=== PATIENT | male | born 1945 | race Caucasian/White ===

== ENCOUNTER 2016-11-10 08:00 | Inpatient (IN) | payer OTHER ==
[2016-11-10] MEDS ORDERED: methylPREDNISolone SOD SUCC 125 MG/2 ML VIAL IVP ONE (08:13)
[2016-11-10] MEDS: BUDESONIDE 0.5MG/2ML AMPUL.NEB NEB SCH ×2 (08:20→21:21)
[2016-11-10] MEDS ORDERED: 0.9 % SODIUM CHLORIDE 1,000 ML IV SCH (08:30)
[2016-11-10 08:52] LABS: MEAN CORPUSCULAR HEMOGLOBIN 29.7 pg (28.0-34.0)
[2016-11-10 09:00] LABS: BASOPHILS % 1 % (0-2); MONOCYTES % 2 % (0-11); SEGMENTED NEUTROPHILS % 80 % (39-79)
[2016-11-10] MEDS ORDERED: IPRATROPIUM/ALBUTEROL SULFATE 3 ML AMPUL.NEB NEB ONE ×2 (09:06→09:08)
[2016-11-10 09:30] LABS: eGFR (African) > 60; eGFR (Non-African) > 60
[2016-11-10] MEDS ORDERED: LORazepam 2 MG/ML VIAL IVP ONE (10:06)
[2016-11-10] MEDS ORDERED: cefTRIAXone SODIUM ADVANTAGE 1 GM in NORMAL SALINE ADD-VANTAGE 50 ML IV ONE (11:11)
[2016-11-10] MEDS ORDERED: cefTRIAXone SODIUM 1 GM VIAL ONE (11:24)
[2016-11-10] MEDS ORDERED: 0.9 % SODIUM CHLORIDE 100 ML IV ONE (11:25)
--- NOTE | 2016-11-10 11:37 | ED Physician Documentation ---
Dyspnea - HISTORIAN Historian: patient - HPI Stated Complaint: shortness of breath Chief Complaint: Dyspnea Additional Information: Pt. states has been soa this am. Coughing up some yellow phlegm for last 3 days. Onset: hours (1) Duration: continues in ED Initiating Event: upper respiratory illness (see above) Severity: moderate Exacerbated By: exertion Associated Symptoms: fever, productive cough Further Comments: no - ROS CONST: no problems EYES/ENT: none GI/: none NEURO/PSYCH: denies: headache MS/SKIN/LYMPH: none - PAST HX Lung Disease: COPD Cardiac Disease: none PE Risk Factors: none Surgeries/Procedures: none Other History: other (copd) Immunizations: referred to PCP Allergies/Adverse Reactions: Allergies Allergy/AdvReac Type Severity Reaction Status Date / Time No Known Allergies Allergy Verified 11/10/16 08:32 Home Medications: Ambulatory Orders Medication Instructions Recorded Unobtainable [Unobtainable] 11/10/16 - SOCIAL HX Smoking History: cigarettes, greater than 1 pack/day Alcohol Use: heavy (noone recently) Drug Use: none - FAMILY HX Family History: no significant history - VITAL SIGNS Vital Signs: Vital Signs Temp Pulse Resp BP Pulse Ox 99.8 F H 130 H 28 H 137/78 81 L 11/10/16 08:00 11/10/16 08:00 11/10/16 08:00 11/10/16 08:00 11/10/16 08:00 - REVIEWED ASSESSMENTS Nursing Assessment Reviewed: Yes Vitals Reviewed: Yes Progress - Results/Orders Results/Orders: cbc, cmp, etoh, abg ordered - Progress Progress: pt. given pulmicort 0.5 mg, duoneb, solumedrol 125 mg ivp and 1 liter ns in er, placed on 4 liters O2 id Critical Care Note - Critical Care Note Total Time (mins): 0 ED Results Lab/Radiology - Lab Results Lab Results: Lab Results 11/10/16 11/10/16 08:40 08:40 WBC 16.60 K/ul H K/ul (4.00-12.00) RBC 4.38 M/ul M/ul (3.90-5.20) Hgb 13.0 g/dL g/dL (12.0-18.0) Hct 41.3 % % (37.0-53.0) MCV 94.3 fl fl (80.0-100.0) MCH 29.7 pg pg (28.0-34.0) MCHC 31.5 g/dL g/dL (30.0-36.0) RDW 14.5 % H % (11.3-14.3) Plt Count 184 K/mm3 K/mm3 (130-400) Seg Neutrophils % 80 % H % (39-79) Band Neutrophils % 7 % % (0-12) Lymphocytes % 10 % L % (16-50) Monocytes % 2 % % (0-11) Basophils % 1 % % (0-2) Plt Morphology Comment Normal (NORMAL) RBC Morph Comment Normal (NORMAL) Sodium 146 mmol/L H mmol/L (136-145) Potassium 4.2 mmol/L mmol/L (3.5-5.0) Chloride 108 mmol/L mmol/L (98-110) Carbon Dioxide 32 mmol/L mmol/L (20-32) BUN Pending Creatinine 0.8 mg/dL mg/dL (0.4-1.5) Estimated Creat Clear 283 Est GFR ( Amer) > 60 (60 - ) Est GFR (Non-Af Amer) > 60 (60 - ) Glucose 96 mg/dL mg/dL (70-99) Calcium 9.3 mg/dL mg/dL (8.5-10.5) Total Bilirubin 0.6 mg/dL mg/dL (0.2-1.2) AST 14 U/L U/L (0-41) ALT 15 U/L U/L (0-45) Alkaline Phosphatase 72 U/L U/L (46-116) Total Protein 7.0 g/dL g/dL (6.0-8.5) Albumin 4.3 g/dL g/dL (3.0-5.5) Ethyl Alcohol < 10.0 MG/DL MG/DL (<10.0) - Radiology Radiology Impressions: cxr shows copd with bilateral lower lobe infiltrates - Orders Orders: ED Orders Category Date Time Status CHEST 1 VIEW [RAD] Routine Exams 11/10/16 Ordered ARTERIAL BLOOD GAS Stat Lab 11/10/16 Uncollected BLOOD CULTURE Routine Lab 11/10/16 10:00 Received CBC/PLATELET/DIFF Routine Lab 11/10/16 08:40 Completed CMP Routine Lab 11/10/16 08:40 Results ETHANOL MEDICAL USE ONLY Routine Lab 11/10/16 08:40 Results URINALYSIS Routine Lab 11/10/16 08:16 Ordered 0.9 % Sodium Chloride [Normal Saline] 1,000 ml Med 11/10/16 08:30 Ordered IV .Q1H Budesonide [Pulmicort] Med 11/10/16 09:00 Ordered 0.5 mg NEB BID Ipratropium/Albuterol Sulfate [Duoneb] Med 11/10/16 09:06 Discontinued 3 ml NEB .STK-MED ONE Ipratropium/Albuterol Sulfate [Duoneb] Med 11/10/16 09:08 Discontinued 3 ml NEB NOW ONE LORazepam [Ativan] Med 11/10/16 10:06 Stop Req 1 mg IVP NOW ONE cefTRIAXone SODIUM ADVANTAGE [Rocephin Advantage] 1 gm Med 11/10/16 11:11 Ordered Normal Saline Add-[place] [Sodium Chloride] 50 ml IV NOW methylPREDNISolone SOD SUCC [Solu-MEDROL] Med 11/10/16 08:13 Discontinued 125 mg IVP NOW ONE Oxygen Daily Oxygen 11/10/16 08:30 Ordered EKG WITH COMPARISON Routine Ther 11/10/16 Ordered Dyspnea Physical Exam - EXAM General Appearance: alert, moderate distress EENT: eye inspection normal, ENT inspection normal, pharynx normal, no signs of dehydration, FRENCH, no nystagmus, TM's nml Neck: nml inspection Respiratory: no pain on inspiration, respiratory distress, wheezes, rales, other (tachypnea) CVS: reg. rate & rhythm, no murmur, no gallop, no friction rub, pulses full, pulses equal Abdomen: non-tender, no organomegaly, no distention, no ascites Skin: color nml, no rash Extremities: non-tender, normal range of motion, no evidence of injury, no edema Neuro/Psych: oriented x3, CN's nml as tested, motor nml, sensation nml, mood/ affect nml Discharge Clincal Impression: Pneumonia Qualifiers: Pneumonia type: due to unspecified organism Laterality: bilateral Lung location : lower lobe of lung Qualified Code(s): J18.9 - Pneumonia, unspecified organism Home Medications: Ambulatory Orders Unobtainable [Unobtainable] 11/10/16 Comments: Case discussed with Dr. Garces, accepts case Condition: Stable Disposition: 09 ADMITTED INPATIENT Decision to Admit: [id number] Date of Decison to Admit: 11/10/16 Decision Time: 11:45
--- NOTE | 2016-11-10 12:52 | History and Physical Report ---
History of Present Illnes - History of Present Illness Reason for Visit: dyspnea History of Present Illness: 71-year-old white male with a history of COPD. Over the last 3 days prior to admission patient has had increasing shortness of breath dyspnea associated with a productive cough up some green to yellow phlegm. Patient denies any hemoptysis. Patient states that at baseline, breathing has become worse. Patient has been increasing the use of his inhalers without any improvement. Patient had some chills but no fever noted. Patient was subsequently seen in the ED. In the ED patient's SaO2 was approximately 82% on room air. Patient is usually not on home O2. Patient was given several hyperpigmented nebulization treatment and was started on 4 L per nasal cannula. Patient showed some improvement but was not able to maintain his oxygen level without supplemental oxygen. Patient was found to have a leukocytosis and bilateral lower lobe pneumonias. Patient was subsequently admitted to the hospital for further care and evaluation. - Past Medical History Pulmonary: COPD - Past Surgical History Past Surgical History: Other (right foot surgery) - Past Family History Mother Family History: Father Family History: - Past Social History Smoke: 2 packs per day Alcohol: Heavy (intermittent, drinking a 1/5th of vodka or wiskey daily at times. Last use was yesterday. ) Drugs: None Lives: Alone (homeless at times) - Health Maintenance Health Maintenance: Influenza Vaccine. denies: Cholesterol, Pneumococcal Vaccine Pneumonia Vaccine: No (not sure) Resuscitation Status: DNR - Unable to Obtain History Unable to Obtain: No Review of Systems - Review of Systems Constitutional: Fever, Chills. negative: Sweats, Weakness Eyes: negative: pain, vision change, eyelid inflammation ENT: negative: Ear Pain, Ear Discharge, Nose Pain, Nose Discharge, Nose Congestion, Mouth Pain, Mouth Swelling, Throat Pain, Throat Swelling Respiratory: Cough, Shortness of Breath, SOB with Excertion, Sputum (green), Wheezing. negative: Hemoptysis, Pleuritic Pain Cardiovascular: negative: Chest Pain, Palpitations, Orthopnea, Paroxysmal Noc. Dyspnea Gastrointestinal: negative: Nausea, Vomiting, Abdominal Pain, Diarrhea, Constipation, Melena, Hematochezia Genitourinary: negative: Dysuria, Frequency, Incontinence, Retention Musculoskeletal: Back Pain. negative: Neck Pain, Shoulder Pain Skin: negative: Rash, Lesions Neurological: negative: Weakness, Numbness, Incoordination, Change in Speech, Confusion, Seizures - Medications/Allergies Allergies/Adverse Reactions: Allergies Allergy/AdvReac Type Severity Reaction Status Date / Time No Known Allergies Allergy Verified 11/10/16 08:32 Current Inpatient Medications: Current Inpatient Medications Budesonide (Pulmicort) 0.5 mg NEB BID [facility] Last Admin: 11/10/16 08:20 Dose: 0.5 mg Sodium Chloride (Normal Saline) 1,000 mls @ 1,000 mls/hr IV .Q1H [facility] Exam - Exam General: Alert, Oriented to Person, Oriented to Place, Oriented to Time, Cooperative, Moderate distress HEENT: Atraumatic, PERRLA, EOMI, Mouth Mucous membr. moist/[place], Dentition Normal (infair repair), Hearing Grossly Normal. No: Nose Mucous membr. moist/ [place], Pharyngeal Erythema Neck: Normal Range of Motion Carotids: WNL Thyroid: WNL Lungs: Speaks full Sentences, Respiratory Distress (mild), Wheezes, Rhonchi ( few scattered bilaterally). No: Rales, Prolonged Expiration, Accessory Muscle Use Cardiovascular: Regular rate, Normal S1, Normal S2, No murmurs. No: Gallops, Rubs Abdomen: Normal bowel sounds, Soft, No tenderness, No hepatospenomegaly, No masses. No: Distended Integumentary: Normal, [place], Warm, Dry Extremities: No clubbing, No cyanosis, No edema, Normal pulses, No tenderness/ swelling Neurological: Normal gait, Normal speech, Strength Equal Bilat, Normal tone, Sensation intact, Cranial nerves 3-12 NL, Reflexes 2+, Other (some tremors/ shakes, possibly related to EtOH withdrawals) Psych/Mental Status: Mental status NL, Mood NL, Appropriate Affect, Intact Judgment Assessment/Plan - Assessment/Plan (1) Alcohol abuse Status: Acute Assessment: Will start on thiamine, watch for alcohol withdrawal symptoms (2) COPD (chronic obstructive pulmonary disease) Status: Acute Qualifiers: COPD type: COPD with acute exacerbation Qualified Code(s): J44.1 - Chronic obstructive pulmonary disease with (acute) exacerbation Comment: HFN with DUO neb treatments, steroids (3) Pneumonia Status: Acute Qualifiers: Pneumonia type: due to unspecified organism Laterality: bilateral Lung location: lower lobe of lung Qualified Code(s): J18.9 - Pneumonia, unspecified organism Assessment: Patient has blood cultures drawn, will start with Rocephin and Azithromycin. VTE Assessment - RISK FACTOR SCORE VTE RISK FACTOR SCORES: AGE OVER 60 YEARS, ACUTE INFECTION OTHER THEN SEPSIS - RISK VTE MODERATE RISK: SCORE OF 2 (RISK PROXIMAL DVT 2-4%) PROPHYAXIS NEEDED
[2016-11-10] MEDS ORDERED: ACETAMINOPHEN 325 MG TABLET PO PRN (12:58)
[2016-11-10] MEDS ORDERED: ENOXAPARIN SODIUM 30 MG/0.3 ML DISP.SYRIN SQ SCH (13:00)
[2016-11-10] MEDS: cefTRIAXone SODIUM 1 GM in 0.9 % SODIUM CHLORIDE 50 ML IV SCH (13:28)
[2016-11-10 13:46] LABS: APPEARANCE,URINE Slightly Cloudy (CLEAR); COLOR,URINE Yellow (YELLOW); OCCULT BLOOD,URINE Trace-lysed (NEGATIVE); UROBILINOGEN URINE 0.2 Eu (0.2-1.0)
[2016-11-10] MEDS: IPRATROPIUM/ALBUTEROL SULFATE 3 ML AMPUL.NEB NEB SCH ×3 (13:55→21:20)
[2016-11-10] MEDS ORDERED: 0.9 % SODIUM CHLORIDE 250 ML IV ONE (14:09)
[2016-11-10] MEDS ORDERED: SALINE FLUSH 10 ML DISP.SYRIN IVF ONE ×3 (14:09→23:50)
[2016-11-10] MEDS ORDERED: AZITHROMYCIN 500 MG VIAL IV ONE (14:09)
[2016-11-10] MEDS: AZITHROMYCIN 500 MG in 0.9 % SODIUM CHLORIDE 250 ML IV SCH (14:31)
[2016-11-10] MEDS ORDERED: ENOXAPARIN SODIUM 30 MG/0.3 ML DISP.SYRIN SQ ONE (14:39)
--- NOTE | 2016-11-10 16:05 | Diagnostic Imaging Report ---
ZACH CALLAWAY [facility] [id number] [facility].[address] [address] Report Submission Date: Nov 10, 2016 8:49:39 AM SALES LEDGER ADMINISTRATOR Patient Study Name: JONATHAN ESCOBAR Date: Nov 10, 2016 8:22:30 AM SALES LEDGER ADMINISTRATOR Modality Type: CR Gender: M Description: CHEST : 49 Institution: [facility] Physician: ZACH CALLAWAY Chest -one view CLINICAL HISTORY: Shortness of breath. COPD. FINDINGS: Examination of the chest in single portable AP view 11/10/2016 0822 hr with no prior film for comparison demonstrates bibasilar infiltrates or atelectasis partially obscuring the hemidiaphragms. Cardiac silhouette is prominent and the aorta is atherosclerotic. Monitor leads superimpose the chest. IMPRESSION: Bibasilar infiltrates or atelectasis. Aortic atherosclerosis. Electronically signed on Nov 10, 2016 8:49:39 AM SALES LEDGER ADMINISTRATOR by: Tomás MORAN
[2016-11-10] MEDS: SODIUM CHLORIDE 0.45 % 1,000 ML IV SCH (16:18)
[2016-11-10 16:28] VITALS: BMI 27.7
[2016-11-10] MEDS ORDERED: NICOTINE 14mg PATCH.TD24 TD ONE (19:01)
[2016-11-10] MEDS: ACETAMINOPHEN 500 MG TABLET PO PRN (19:03)
[2016-11-10] MEDS: LORazepam 0.5 MG TABLET PO PRN (19:03)
[2016-11-10] MEDS: NICOTINE 14mg PATCH.TD24 TD SCH (19:07)
[2016-11-10] MEDS: THIAMINE HCL 100 MG TABLET PO SCH (21:05)
[2016-11-10] MEDS: methylPREDNISolone SOD SUCC 40 MG/ML VIAL IVP SCH (21:20)
[2016-11-11] MEDS: IPRATROPIUM/ALBUTEROL SULFATE 3 ML AMPUL.NEB NEB SCH ×6 (01:20→20:40)
[2016-11-11] MEDS: SODIUM CHLORIDE 0.45 % 1,000 ML IV SCH ×3 (01:30→23:09)
[2016-11-11] MEDS: LORazepam 0.5 MG TABLET PO PRN ×3 (04:17→20:24)
[2016-11-11 06:04] LABS: ABG BASE EXCESS 5.6 (-2 - +2); ABG PCO2 48 mmhg (35-45); ABG PH 7.42 (7.35-7.45); ABG PO2 54 mmhg (80-100)
[2016-11-11 06:05] LABS: ABG OXYGEN SATURATION 88 % (93-100)
[2016-11-11] MEDS ORDERED: FUROSEMIDE 20 MG TABLET PO ONE (06:48)
[2016-11-11 06:57] LABS: eGFR (African) > 60; eGFR (Non-African) > 60
[2016-11-11 07:56] LABS: MEAN CORPUSCULAR HEMOGLOBIN 28.5 pg (28.0-34.0)
[2016-11-11 08:14] LABS: MONOCYTES % 3 % (0-11); SEGMENTED NEUTROPHILS % 85 % (39-79)
[2016-11-11] MEDS: NICOTINE 14mg PATCH.TD24 TD SCH (08:15)
[2016-11-11] MEDS: THIAMINE HCL 100 MG TABLET PO SCH (08:16)
[2016-11-11] MEDS: ENOXAPARIN SODIUM 30 MG/0.3 ML DISP.SYRIN SQ SCH (08:16)
[2016-11-11] MEDS: BUDESONIDE 0.5MG/2ML AMPUL.NEB NEB SCH ×2 (09:16→20:25)
[2016-11-11] MEDS: methylPREDNISolone SOD SUCC 40 MG/ML VIAL IVP SCH ×2 (09:21→20:36)
--- NOTE | 2016-11-11 09:56 | Inpatient Progress Note ---
Subjective - Required Recertification Statement I anticipate X number of days because-include discharge plan: 2 days - Review of Systems Events since last encounter: Patient seems to be doing better today. Is still wheezing some but not as bad. Has not bee getting up and walking very much. Still has a productive cough. Nebulized treatments seem to be doing better. Patient denies any chest pain or pressure. Patient is still having some tremors, Ativan seems to be helping. No history of seizures with withdrawals. Pulmonary: Dyspnea, Cough (over the) Cardiovascular: Denies: Chest Pain (review Of dual walking), Orthopnea Gastrointestinal: Denies: Nausea, Vomiting, Abdominal Pain Objective - Exam Vitals and I&O: Vital Signs Temp 98.7 F 11/11/16 09:29 Pulse 91 H 11/11/16 09:29 Resp 22 11/11/16 09:29 BP 127/60 11/11/16 09:29 Pulse Ox 94 11/11/16 09:29 Intake & Output 11/10/16 11/10/16 11/11/16 11:59 23:59 11:59 Intake Total 480 480 Output Total 1100 Balance 480 -620 Weight 95.254 kg Intake: Oral 480 480 Output: Urine 1100 Other: Voiding Method Urinal # Voids 2 General: Alert, Oriented to Person, Oriented to Place, Oriented to Time, Cooperative Neck: Supple, No JVD Lungs: Normal air movement, Speaks full Sentences, Wheezes (mild espiratory on the left posterior side. ), Rhonchi (few scattered bilaterally). No: Rales Cardiovascular: Regular rate, Normal S1, Normal S2, No murmurs Abdomen: Normal bowel sounds, Soft, No tenderness, No hepatospenomegaly, No masses Skin: Normal, [place], Warm Neurological: Normal speech Psych/Mental Status: Mental status NL, Mood NL - Results Results: Laboratory Results WBC 13.50 K/ul (4.00-12.00) H 11/11/16 06:15 RBC 3.72 M/ul (3.90-5.20) L 11/11/16 06:15 Hgb 10.6 g/dL (12.0-18.0) L 11/11/16 06:15 Hct 34.9 % (37.0-53.0) L 11/11/16 06:15 MCV 93.9 fl (80.0-100.0) 11/11/16 06:15 MCH 28.5 pg (28.0-34.0) 11/11/16 06:15 MCHC 30.4 g/dL (30.0-36.0) 11/11/16 06:15 RDW 14.4 % (11.3-14.3) H 11/11/16 06:15 Plt Count 166 K/mm3 (130-400) 11/11/16 06:15 Seg Neutrophils % 85 % (39-79) H 11/11/16 06:15 Band Neutrophils % 7 % (0-12) 11/11/16 06:15 Lymphocytes % 5 % (16-50) L 11/11/16 06:15 Monocytes % 3 % (0-11) 11/11/16 06:15 Basophils % 1 % (0-2) 11/10/16 08:40 Plt Morphology Comment Normal (NORMAL) 11/11/16 06:15 RBC Morph Comment Normal (NORMAL) 11/11/16 06:15 pH 7.42 (7.35-7.45) 11/10/16 09:05 pCO2 48 mmhg (35-45) H 11/10/16 09:05 pO2 54 mmhg (80-100) L 11/10/16 09:05 HCO3 31.1 Meq/L (21-26) H 11/10/16 09:05 ABG O2 Sat Calc/Terry 88 % (93-100) L 11/10/16 09:05 ABG Base Excess 5.6 (-2 - +2) H 11/10/16 09:05 Sodium 139 mmol/L (136-145) 11/11/16 06:15 Potassium 4.2 mmol/L (3.5-5.0) 11/11/16 06:15 Chloride 93 mmol/L (98-110) L 11/11/16 06:15 Carbon Dioxide 30 mmol/L (20-32) 11/11/16 06:15 BUN 25 mg/dL (10-26) 11/11/16 06:15 Creatinine 0.6 mg/dL (0.4-1.5) 11/11/16 06:15 Estimated Creat Clear 156 11/11/16 06:15 Est GFR ( Amer) > 60 (60-) 11/11/16 06:15 Est GFR (Non-Af Amer) > 60 (60-) 11/11/16 06:15 Glucose 157 mg/dL (70-99) H 11/11/16 06:15 Calcium 8.8 mg/dL (8.5-10.5) 11/11/16 06:15 Total Bilirubin 0.5 mg/dL (0.2-1.2) 11/11/16 06:15 AST 11 U/L (0-41) 11/11/16 06:15 ALT 15 U/L (0-45) 11/11/16 06:15 Alkaline Phosphatase 55 U/L (46-116) 11/11/16 06:15 Total Protein 6.0 g/dL (6.0-8.5) 11/11/16 06:15 Albumin 3.8 g/dL (3.0-5.5) 11/11/16 06:15 Urine Color Yellow (YELLOW) 11/10/16 13:45 Urine Appearance Slightly cloudy (CLEAR) 11/10/16 13:45 Urine pH 6.0 (5.0 - 8.0) 11/10/16 13:45 Ur Specific [place] >=1.030 (1.010-1.030) H 11/10/16 13:45 Urine Protein 1+ mg/dL (NEGATIVE) H 11/10/16 13:45 Urine Ketones Negative mg/dL (NEGATIVE) 11/10/16 13:45 Urine Occult Blood Trace-lysed (NEGATIVE) 11/10/16 13:45 Urine Nitrite Negative (NEGATIVE) 11/10/16 13:45 Urine Bilirubin Negative (NEGATIVE) 11/10/16 13:45 Urine Urobilinogen 0.2 Eu (0.2-1.0) 11/10/16 13:45 Ur Leukocyte Esterase Negative (NEGATIVE) 11/10/16 13:45 Urine Glucose Negative mg/dL (NEGATIVE) 11/10/16 13:45 Ethyl Alcohol < 10.0 MG/DL (<10.0) 11/10/16 08:40 Assessment/Plan - Assessment/Plan (1) Pneumonia Status: Acute Current Visit: Yes Qualifiers: Pneumonia type: due to unspecified organism Laterality: bilateral Lung location: lower lobe of lung Qualified Code(s): J18.9 - Pneumonia, unspecified organism Assessment: stable to improved. Will continue with present meds. Still needs oxygen support. (2) Alcohol abuse Status: Acute Current Visit: Yes Assessment: Appearst to be having some withdrawal problems, is stable at this time. (3) COPD (chronic obstructive pulmonary disease) Status: Acute Current Visit: Yes Qualifiers: COPD type: COPD with acute exacerbation Qualified Code(s): J44.1 - Chronic obstructive pulmonary disease with (acute) exacerbation Comment: HFN with DUO neb treatments, steroids Assessment: Improved
[2016-11-11] MEDS: cefTRIAXone SODIUM 1 GM in 0.9 % SODIUM CHLORIDE 50 ML IV SCH (12:27)
[2016-11-11] MEDS: AZITHROMYCIN 500 MG in 0.9 % SODIUM CHLORIDE 250 ML IV SCH (13:27)
[2016-11-11] MEDS: ACETAMINOPHEN 500 MG TABLET PO PRN (13:51)
[2016-11-11] MEDS ORDERED: SALINE FLUSH 10 ML DISP.SYRIN IVF ONE (20:32)
[2016-11-12] MEDS: IPRATROPIUM/ALBUTEROL SULFATE 3 ML AMPUL.NEB NEB SCH ×6 (04:39→22:53)
[2016-11-12] MEDS ORDERED: SALINE FLUSH 10 ML DISP.SYRIN IVF ONE ×4 (06:22→21:39)
[2016-11-12] MEDS: SODIUM CHLORIDE 0.45 % 1,000 ML IV SCH (08:00)
[2016-11-12] MEDS: BUDESONIDE 0.5MG/2ML AMPUL.NEB NEB SCH ×2 (09:15→22:53)
[2016-11-12] MEDS: ENOXAPARIN SODIUM 30 MG/0.3 ML DISP.SYRIN SQ SCH (09:31)
[2016-11-12] MEDS: NICOTINE 14mg PATCH.TD24 TD SCH (09:31)
[2016-11-12] MEDS: THIAMINE HCL 100 MG TABLET PO SCH (09:31)
[2016-11-12] MEDS: LORazepam 0.5 MG TABLET PO PRN (09:36)
[2016-11-12] MEDS: methylPREDNISolone SOD SUCC 40 MG/ML VIAL IVP SCH ×2 (09:46→21:22)
[2016-11-12] MEDS: cefTRIAXone SODIUM 1 GM in 0.9 % SODIUM CHLORIDE 50 ML IV SCH (12:55)
[2016-11-12] MEDS: AZITHROMYCIN 500 MG in 0.9 % SODIUM CHLORIDE 250 ML IV SCH (13:50)
[2016-11-13] MEDS: IPRATROPIUM/ALBUTEROL SULFATE 3 ML AMPUL.NEB NEB SCH ×6 (04:10→22:44)
[2016-11-13] MEDS: methylPREDNISolone SOD SUCC 40 MG/ML VIAL IVP SCH ×2 (10:19→22:48)
[2016-11-13] MEDS: NICOTINE 14mg PATCH.TD24 TD SCH (10:20)
[2016-11-13] MEDS: THIAMINE HCL 100 MG TABLET PO SCH (10:20)
[2016-11-13] MEDS: ENOXAPARIN SODIUM 30 MG/0.3 ML DISP.SYRIN SQ SCH (10:20)
[2016-11-13] MEDS: BUDESONIDE 0.5MG/2ML AMPUL.NEB NEB SCH ×2 (10:28→22:47)
[2016-11-13] MEDS ORDERED: SALINE FLUSH 10 ML DISP.SYRIN IVF ONE ×2 (13:02→21:22)
[2016-11-13] MEDS: cefTRIAXone SODIUM 1 GM in 0.9 % SODIUM CHLORIDE 50 ML IV SCH (13:06)
[2016-11-13] MEDS: AZITHROMYCIN 500 MG in 0.9 % SODIUM CHLORIDE 250 ML IV SCH (14:26)
--- NOTE | 2016-11-13 19:43 | Inpatient Progress Note ---
Subjective - Required Recertification Statement I anticipate X number of days because-include discharge plan: 1 day - Review of Systems Events since last encounter: Patient states that he continues to have a productive cough of some brown phlegm , no blood noted. Still gets SOB with exertion. Yesterday post ambulating SAO2 dropped to 85% with 2 liters. Patient is not on oxygen therapy at home. With ambulation patient's pulse increased to the 120-130s. Appears to be in a NSR on monitor. Patient's tremors much improved and almost gone today. HEENT: Denies: Head Aches Pulmonary: Dyspnea, Cough. Denies: Pleuritic Chest Pain Cardiovascular: Palpitations (with ambulation). Denies: Chest Pain Gastrointestinal: Constipation. Denies: Nausea, Vomiting, Abdominal Pain, Diarrhea Objective - Exam Vitals and I&O: Vital Signs Temp 97.5 F L 11/13/16 18:00 Pulse 114 H 11/13/16 18:00 Resp 20 11/13/16 18:00 BP 138/79 11/13/16 18:00 Pulse Ox 97 11/13/16 18:00 Intake & Output 11/12/16 11/13/16 11/13/16 23:59 11:59 23:59 Intake Total 152 572 9162 Output Total 675 Balance 600 600 325 Intake: Oral 262 820 6455 Output: Urine 675 Other: Voiding Method Urinal Urinal # Bowel Movements 0 General: Alert, Oriented to Person, Oriented to Place, Oriented to Time, Cooperative, No acute distress Lungs: Speaks full Sentences, Respiratory Distress (mild), Wheezes (just in the RLL today), Rhonchi (RL) Cardiovascular: Regular rate, Normal S1, Normal S2, No murmurs Abdomen: Normal bowel sounds, Soft, No tenderness Skin: Normal, [place], Warm, Dry Neurological: Normal gait, Normal speech Psych/Mental Status: Mental status NL, Mood NL, Appropriate Affect, Intact Judgment - Results Results: Laboratory Results WBC 13.50 K/ul (4.00-12.00) H 11/11/16 06:15 RBC 3.72 M/ul (3.90-5.20) L 11/11/16 06:15 Hgb 10.6 g/dL (12.0-18.0) L 11/11/16 06:15 Hct 34.9 % (37.0-53.0) L 11/11/16 06:15 MCV 93.9 fl (80.0-100.0) 11/11/16 06:15 MCH 28.5 pg (28.0-34.0) 11/11/16 06:15 MCHC 30.4 g/dL (30.0-36.0) 11/11/16 06:15 RDW 14.4 % (11.3-14.3) H 11/11/16 06:15 Plt Count 166 K/mm3 (130-400) 11/11/16 06:15 Seg Neutrophils % 85 % (39-79) H 11/11/16 06:15 Band Neutrophils % 7 % (0-12) 11/11/16 06:15 Lymphocytes % 5 % (16-50) L 11/11/16 06:15 Monocytes % 3 % (0-11) 11/11/16 06:15 Basophils % 1 % (0-2) 11/10/16 08:40 Plt Morphology Comment Normal (NORMAL) 11/11/16 06:15 RBC Morph Comment Normal (NORMAL) 11/11/16 06:15 pH 7.42 (7.35-7.45) 11/10/16 09:05 pCO2 48 mmhg (35-45) H 11/10/16 09:05 pO2 54 mmhg (80-100) L 11/10/16 09:05 HCO3 31.1 Meq/L (21-26) H 11/10/16 09:05 ABG O2 Sat Calc/Terry 88 % (93-100) L 11/10/16 09:05 ABG Base Excess 5.6 (-2 - +2) H 11/10/16 09:05 Sodium 139 mmol/L (136-145) 11/11/16 06:15 Potassium 4.2 mmol/L (3.5-5.0) 11/11/16 06:15 Chloride 93 mmol/L (98-110) L 11/11/16 06:15 Carbon Dioxide 30 mmol/L (20-32) 11/11/16 06:15 BUN 25 mg/dL (10-26) 11/11/16 06:15 Creatinine 0.6 mg/dL (0.4-1.5) 11/11/16 06:15 Estimated Creat Clear 156 11/11/16 06:15 Est GFR ( Amer) > 60 (60-) 11/11/16 06:15 Est GFR (Non-Af Amer) > 60 (60-) 11/11/16 06:15 Glucose 157 mg/dL (70-99) H 11/11/16 06:15 Calcium 8.8 mg/dL (8.5-10.5) 11/11/16 06:15 Total Bilirubin 0.5 mg/dL (0.2-1.2) 11/11/16 06:15 AST 11 U/L (0-41) 11/11/16 06:15 ALT 15 U/L (0-45) 11/11/16 06:15 Alkaline Phosphatase 55 U/L (46-116) 11/11/16 06:15 Total Protein 6.0 g/dL (6.0-8.5) 11/11/16 06:15 Albumin 3.8 g/dL (3.0-5.5) 11/11/16 06:15 Urine Color Yellow (YELLOW) 11/10/16 13:45 Urine Appearance Slightly cloudy (CLEAR) 11/10/16 13:45 Urine pH 6.0 (5.0 - 8.0) 11/10/16 13:45 Ur Specific [place] >=1.030 (1.010-1.030) H 11/10/16 13:45 Urine Protein 1+ mg/dL (NEGATIVE) H 11/10/16 13:45 Urine Ketones Negative mg/dL (NEGATIVE) 11/10/16 13:45 Urine Occult Blood Trace-lysed (NEGATIVE) 11/10/16 13:45 Urine Nitrite Negative (NEGATIVE) 11/10/16 13:45 Urine Bilirubin Negative (NEGATIVE) 11/10/16 13:45 Urine Urobilinogen 0.2 Eu (0.2-1.0) 11/10/16 13:45 Ur Leukocyte Esterase Negative (NEGATIVE) 11/10/16 13:45 Urine Glucose Negative mg/dL (NEGATIVE) 11/10/16 13:45 Ethyl Alcohol < 10.0 MG/DL (<10.0) 11/10/16 08:40 Assessment/Plan - Assessment/Plan (1) Pneumonia Status: Acute Current Visit: Yes Qualifiers: Pneumonia type: due to unspecified organism Laterality: bilateral Lung location: lower lobe of lung Qualified Code(s): J18.9 - Pneumonia, unspecified organism Assessment: Will continue with IV antibiotics and HFN treaments. Will recheck labs and CXR in the AM. Patient advised that he may need to go home with oxygen therapy. (2) Alcohol abuse Status: Acute Current Visit: Yes Assessment: Withdrawal symptoms seem much better at this time. (3) COPD (chronic obstructive pulmonary disease) Status: Acute Current Visit: Yes Qualifiers: COPD type: COPD with acute exacerbation Qualified Code(s): J44.1 - Chronic obstructive pulmonary disease with (acute) exacerbation Comment: HFN with DUO neb treatments, steroids Assessment: stable (4) Tachyarrhythmia Status: Acute Current Visit: Yes Assessment: Willl start metoprolol to help with elevated pulse and BP with ambulation.
--- NOTE | 2016-11-13 19:43 | Inpatient Progress Note ---
Subjective - Required Recertification Statement I anticipate X number of days because-include discharge plan: 1 day - Review of Systems Events since last encounter: Patient is doing better today. Still having some wheezing and SOB. Patient complains of dyspnea with ambulation. Tremors seem to be improving some. No fever or chills noted. HEENT: Sinus Congestion (clear) Cardiovascular: Denies: Chest Pain, Palpitations, Orthopnea, Paroxysmal Noc. Dyspnea Gastrointestinal: Denies: Nausea, Vomiting, Abdominal Pain, Diarrhea, Constipation Genitourinary: Denies: Dysuria Objective - Exam Vitals and I&O: Vital Signs Temp 97.5 F L 11/13/16 18:00 Pulse 114 H 11/13/16 18:00 Resp 20 11/13/16 18:00 BP 138/79 11/13/16 18:00 Pulse Ox 97 11/13/16 18:00 Intake & Output 11/12/16 11/13/16 11/13/16 23:59 11:59 23:59 Intake Total 318 811 9146 Output Total 675 Balance 600 600 325 Intake: Oral 181 962 8316 Output: Urine 675 Other: Voiding Method Urinal Urinal # Bowel Movements 0 General: Alert, Oriented to Person, Oriented to Place, Oriented to Time, Cooperative Neck: Supple, No JVD Lungs: Normal air movement, Wheezes (bilateral all lung fileds, not as tight as yestereday.), Rales (rigth base), Rhonchi (right base) Cardiovascular: Regular rate, Normal S1, Normal S2, No murmurs. No: Gallops, Rubs, Murmur Abdomen: Normal bowel sounds, Soft, No tenderness, No hepatospenomegaly Extremities: No clubbing, No cyanosis, No edema, Normal pulses Skin: Normal, [place], Warm, Dry Neurological: Normal speech, Strength Equal Bilat Psych/Mental Status: Mental status NL, Mood NL, Appropriate Affect, Intact Judgment - Results Results: Laboratory Results WBC 13.50 K/ul (4.00-12.00) H 11/11/16 06:15 RBC 3.72 M/ul (3.90-5.20) L 11/11/16 06:15 Hgb 10.6 g/dL (12.0-18.0) L 11/11/16 06:15 Hct 34.9 % (37.0-53.0) L 11/11/16 06:15 MCV 93.9 fl (80.0-100.0) 11/11/16 06:15 MCH 28.5 pg (28.0-34.0) 11/11/16 06:15 MCHC 30.4 g/dL (30.0-36.0) 11/11/16 06:15 RDW 14.4 % (11.3-14.3) H 11/11/16 06:15 Plt Count 166 K/mm3 (130-400) 11/11/16 06:15 Seg Neutrophils % 85 % (39-79) H 11/11/16 06:15 Band Neutrophils % 7 % (0-12) 11/11/16 06:15 Lymphocytes % 5 % (16-50) L 11/11/16 06:15 Monocytes % 3 % (0-11) 11/11/16 06:15 Basophils % 1 % (0-2) 11/10/16 08:40 Plt Morphology Comment Normal (NORMAL) 11/11/16 06:15 RBC Morph Comment Normal (NORMAL) 11/11/16 06:15 pH 7.42 (7.35-7.45) 11/10/16 09:05 pCO2 48 mmhg (35-45) H 11/10/16 09:05 pO2 54 mmhg (80-100) L 11/10/16 09:05 HCO3 31.1 Meq/L (21-26) H 11/10/16 09:05 ABG O2 Sat Calc/Terry 88 % (93-100) L 11/10/16 09:05 ABG Base Excess 5.6 (-2 - +2) H 11/10/16 09:05 Sodium 139 mmol/L (136-145) 11/11/16 06:15 Potassium 4.2 mmol/L (3.5-5.0) 11/11/16 06:15 Chloride 93 mmol/L (98-110) L 11/11/16 06:15 Carbon Dioxide 30 mmol/L (20-32) 11/11/16 06:15 BUN 25 mg/dL (10-26) 11/11/16 06:15 Creatinine 0.6 mg/dL (0.4-1.5) 11/11/16 06:15 Estimated Creat Clear 156 11/11/16 06:15 Est GFR ( Amer) > 60 (60-) 11/11/16 06:15 Est GFR (Non-Af Amer) > 60 (60-) 11/11/16 06:15 Glucose 157 mg/dL (70-99) H 11/11/16 06:15 Calcium 8.8 mg/dL (8.5-10.5) 11/11/16 06:15 Total Bilirubin 0.5 mg/dL (0.2-1.2) 11/11/16 06:15 AST 11 U/L (0-41) 11/11/16 06:15 ALT 15 U/L (0-45) 11/11/16 06:15 Alkaline Phosphatase 55 U/L (46-116) 11/11/16 06:15 Total Protein 6.0 g/dL (6.0-8.5) 11/11/16 06:15 Albumin 3.8 g/dL (3.0-5.5) 11/11/16 06:15 Urine Color Yellow (YELLOW) 11/10/16 13:45 Urine Appearance Slightly cloudy (CLEAR) 11/10/16 13:45 Urine pH 6.0 (5.0 - 8.0) 11/10/16 13:45 Ur Specific Sh[place] >=1.030 (1.010-1.030) H 11/10/16 13:45 Urine Protein 1+ mg/dL (NEGATIVE) H 11/10/16 13:45 Urine Ketones Negative mg/dL (NEGATIVE) 11/10/16 13:45 Urine Occult Blood Trace-lysed (NEGATIVE) 11/10/16 13:45 Urine Nitrite Negative (NEGATIVE) 11/10/16 13:45 Urine Bilirubin Negative (NEGATIVE) 11/10/16 13:45 Urine Urobilinogen 0.2 Eu (0.2-1.0) 11/10/16 13:45 Ur Leukocyte Esterase Negative (NEGATIVE) 11/10/16 13:45 Urine Glucose Negative mg/dL (NEGATIVE) 11/10/16 13:45 Ethyl Alcohol < 10.0 MG/DL (<10.0) 11/10/16 08:40 Assessment/Plan - Assessment/Plan (1) Pneumonia Status: Acute Current Visit: Yes Qualifiers: Pneumonia type: due to unspecified organism Laterality: bilateral Lung location: lower lobe of lung Qualified Code(s): J18.9 - Pneumonia, unspecified organism Assessment: Blood cultures negative, will continue with present medications (2) Alcohol abuse Status: Acute Current Visit: Yes Assessment: Withdrawal symptoms seem to be improving. (3) COPD (chronic obstructive pulmonary disease) Status: Acute Current Visit: Yes Qualifiers: COPD type: COPD with acute exacerbation Qualified Code(s): J44.1 - Chronic obstructive pulmonary disease with (acute) exacerbation Comment: HFN with DUO neb treatments, steroids Assessment: stable.
[2016-11-13] MEDS: METOPROLOL TARTRATE 50 MG TABLET PO SCH (22:44)
[2016-11-14] MEDS ORDERED: SALINE FLUSH 10 ML DISP.SYRIN IVF ONE ×3 (05:12→10:35)
[2016-11-14] MEDS: IPRATROPIUM/ALBUTEROL SULFATE 3 ML AMPUL.NEB NEB SCH ×6 (05:14→20:26)
[2016-11-14 06:56] LABS: BASOPHILS % 0.1 (0.0-1.5); EOSINOPHILS % 0.1 % (0.0-6.8); LYMPHOCYTES # 1.4 # k/uL (0.6-4.0); MEAN CORPUSCULAR HEMOGLOBIN 28.4 pg (28.0-34.0); MONOCYTES # 0.6 # k/uL (0.0-0.9); MONOCYTES % 3.9 % (0.0-11.0); NEUTROPHILS # 13.3 # k/uL (1.4-7.7)
[2016-11-14 07:16] LABS: eGFR (African) > 60; eGFR (Non-African) > 60
[2016-11-14] MEDS: BUDESONIDE 0.5MG/2ML AMPUL.NEB NEB SCH ×2 (08:36→20:13)
[2016-11-14] MEDS: methylPREDNISolone SOD SUCC 40 MG/ML VIAL IVP SCH ×2 (08:40→20:10)
[2016-11-14] MEDS: THIAMINE HCL 100 MG TABLET PO SCH (09:42)
[2016-11-14] MEDS: NICOTINE 14mg PATCH.TD24 TD SCH (09:42)
[2016-11-14] MEDS: ENOXAPARIN SODIUM 30 MG/0.3 ML DISP.SYRIN SQ SCH (09:42)
[2016-11-14] MEDS: METOPROLOL TARTRATE 50 MG TABLET PO SCH ×2 (09:42→20:23)
[2016-11-14] MEDS: cefTRIAXone SODIUM 1 GM in 0.9 % SODIUM CHLORIDE 50 ML IV SCH (12:45)
[2016-11-14] MEDS: AZITHROMYCIN 500 MG in 0.9 % SODIUM CHLORIDE 250 ML IV SCH (13:20)
--- NOTE | 2016-11-14 15:16 | Diagnostic Imaging Report ---
KAYDEN RUBIO [facility] [address] [facility].[address] [address] Report Submission Date: Nov 14, 2016 7:05:21 AM COAL CARRIER Patient Study Name: JONATHAN ESCOBAR Date: Nov 14, 2016 6:45:51 AM COAL CARRIER Modality Type: CR Gender: M Description: CHEST : 49 Institution: [facility] Physician: KAYDEN RUBIO Chest PA and lateral views Clinical history: Cough and dyspnea with history of COPD Normal heart shadow and mediastinum. Underlying pulmonary emphysema with hyperinflation of both lung jett . No definite evidence of acute infiltrates or pleural effusion. Impression: Pulmonary emphysema without acute infiltrate or pleural effusion with complete resolution the previous infiltrates since the previous study . Electronically signed on Nov 14, 2016 7:05:21 AM COAL CARRIER by: Kayden MORAN
[2016-11-14] MEDS: LORazepam 0.5 MG TABLET PO PRN (15:40)
--- NOTE | 2016-11-14 15:44 | Inpatient Progress Note ---
Subjective - Required Recertification Statement I anticipate X number of days because-include discharge plan: 1 days - Review of Systems Events since last encounter: Patient seems to be doing some better today. Is still getting SOB with exertion. No chest pain noted. General: Denies: Chills, Night Sweats Cardiovascular: Chest Pain Objective - Exam Vitals and I&O: Vital Signs Temp 98.3 F 11/14/16 14:00 Pulse 88 11/14/16 14:00 Resp 20 11/14/16 14:00 BP 142/82 11/14/16 14:00 Pulse Ox 96 11/14/16 14:00 Intake & Output 11/13/16 11/14/16 11/14/16 23:59 11:59 23:59 Intake Total 1000 250 Output Total 675 Balance 325 250 Intake: Oral 1000 250 Output: Urine 675 Other: Voiding Method Urinal Urinal # Bowel Movements 0 1 General: Alert, Oriented to Person, Oriented to Place, Oriented to Time, Cooperative Lungs: Normal air movement, Speaks full Sentences, Rales Cardiovascular: Regular rate, Normal S1, Normal S2, No murmurs, Gallops Abdomen: Normal bowel sounds, Soft, No tenderness, No hepatospenomegaly Skin: Normal, [place], Warm, Dry Neurological: Normal gait, Normal speech - Results Results: Laboratory Results WBC 15.50 K/ul (4.00-12.00) H 11/14/16 06:40 RBC 4.39 M/ul (3.90-5.20) 11/14/16 06:40 Hgb 12.5 g/dL (12.0-18.0) 11/14/16 06:40 Hct 40.4 % (37.0-53.0) 11/14/16 06:40 MCV 92.1 fl (80.0-100.0) 11/14/16 06:40 MCH 28.4 pg (28.0-34.0) 11/14/16 06:40 MCHC 30.8 g/dL (30.0-36.0) 11/14/16 06:40 RDW 14.0 % (11.3-14.3) 11/14/16 06:40 Plt Count 219 K/mm3 (130-400) 11/14/16 06:40 Neut % (Auto) 86.2 % (39.0-79.0) H 11/14/16 06:40 Lymph % (Auto) 9.0 % (16.0-50.0) L 11/14/16 06:40 [place] % (Auto) 3.9 % (0.0-11.0) 11/14/16 06:40 Eos % (Auto) 0.1 % (0.0-6.8) 11/14/16 06:40 Baso % (Auto) 0.1 (0.0-1.5) 11/14/16 06:40 Neut # 13.3 # k/uL (1.4-7.7) H 11/14/16 06:40 Lymph # 1.4 # k/uL (0.6-4.0) 11/14/16 06:40 [place] # 0.6 # k/uL (0.0-0.9) 11/14/16 06:40 Eos # 0.0 # k/uL (0.0-0.6) 11/14/16 06:40 Baso # 0.0 # k/uL (0.0-0.5) 11/14/16 06:40 Seg Neutrophils % 85 % (39-79) H 11/11/16 06:15 Band Neutrophils % 7 % (0-12) 11/11/16 06:15 Lymphocytes % 5 % (16-50) L 11/11/16 06:15 Reactive Lymphs % 0.7 % (0.0-5.0) 11/14/16 06:40 Monocytes % 3 % (0-11) 11/11/16 06:15 Basophils % 1 % (0-2) 11/10/16 08:40 Reactive Lymphs # 0.1 # k/uL (0.0-0.8) 11/14/16 06:40 Plt Morphology Comment Normal (NORMAL) 11/11/16 06:15 RBC Morph Comment Normal (NORMAL) 11/11/16 06:15 pH 7.42 (7.35-7.45) 11/10/16 09:05 pCO2 48 mmhg (35-45) H 11/10/16 09:05 pO2 54 mmhg (80-100) L 11/10/16 09:05 HCO3 31.1 Meq/L (21-26) H 11/10/16 09:05 ABG O2 Sat Calc/Terry 88 % (93-100) L 11/10/16 09:05 ABG Base Excess 5.6 (-2 - +2) H 11/10/16 09:05 Sodium 137 mmol/L (136-145) 11/14/16 06:40 Potassium 4.5 mmol/L (3.5-5.0) 11/14/16 06:40 Chloride 96 mmol/L (98-110) L 11/14/16 06:40 Carbon Dioxide 33 mmol/L (20-32) H 11/14/16 06:40 BUN 23 mg/dL (10-26) 11/14/16 06:40 Creatinine 0.7 mg/dL (0.4-1.5) 11/14/16 06:40 Estimated Creat Clear 134 11/14/16 06:40 Est GFR ( Amer) > 60 (60-) 11/14/16 06:40 Est GFR (Non-Af Amer) > 60 (60-) 11/14/16 06:40 Glucose 118 mg/dL (70-99) H 11/14/16 06:40 Calcium 9.6 mg/dL (8.5-10.5) 11/14/16 06:40 Total Bilirubin 0.3 mg/dL (0.2-1.2) 11/14/16 06:40 AST 11 U/L (0-41) 11/14/16 06:40 ALT 17 U/L (0-45) 11/14/16 06:40 Alkaline Phosphatase 61 U/L (46-116) 11/14/16 06:40 Total Protein 6.3 g/dL (6.0-8.5) 11/14/16 06:40 Albumin 4.0 g/dL (3.0-5.5) 11/14/16 06:40 Urine Color Yellow (YELLOW) 11/10/16 13:45 Urine Appearance Slightly cloudy (CLEAR) 11/10/16 13:45 Urine pH 6.0 (5.0 - 8.0) 11/10/16 13:45 Ur Specific [place] >=1.030 (1.010-1.030) H 11/10/16 13:45 Urine Protein 1+ mg/dL (NEGATIVE) H 11/10/16 13:45 Urine Ketones Negative mg/dL (NEGATIVE) 11/10/16 13:45 Urine Occult Blood Trace-lysed (NEGATIVE) 11/10/16 13:45 Urine Nitrite Negative (NEGATIVE) 11/10/16 13:45 Urine Bilirubin Negative (NEGATIVE) 11/10/16 13:45 Urine Urobilinogen 0.2 Eu (0.2-1.0) 11/10/16 13:45 Ur Leukocyte Esterase Negative (NEGATIVE) 11/10/16 13:45 Urine Glucose Negative mg/dL (NEGATIVE) 11/10/16 13:45 Ethyl Alcohol < 10.0 MG/DL (<10.0) 11/10/16 08:40 Assessment/Plan - Assessment/Plan (1) Pneumonia Status: Acute Qualifiers: Pneumonia type: due to unspecified organism Laterality: bilateral Lung location: lower lobe of lung Qualified Code(s): J18.9 - Pneumonia, unspecified organism (2) Alcohol abuse Status: Acute (3) COPD (chronic obstructive pulmonary disease) Status: Acute Qualifiers: COPD type: COPD with acute exacerbation Qualified Code(s): J44.1 - Chronic obstructive pulmonary disease with (acute) exacerbation Comment: HFN with DUO neb treatments, steroids (4) Tachyarrhythmia Status: Acute
[2016-11-14] MEDS: SERTRALINE HCL 50 MG TABLET PO SCH (17:16)
[2016-11-14] MEDS: VALPROIC ACID (AS SODIUM SALT) 250 MG/5 ML BOTTLE PO SCH ×2 (17:17→20:11)
[2016-11-15] MEDS: IPRATROPIUM/ALBUTEROL SULFATE 3 ML AMPUL.NEB NEB SCH ×4 (03:26→13:53)
[2016-11-15] MEDS: LORazepam 0.5 MG TABLET PO PRN (05:16)
[2016-11-15] MEDS: BUDESONIDE 0.5MG/2ML AMPUL.NEB NEB SCH (08:49)
[2016-11-15] MEDS: ENOXAPARIN SODIUM 30 MG/0.3 ML DISP.SYRIN SQ SCH (09:53)
[2016-11-15] MEDS: METOPROLOL TARTRATE 50 MG TABLET PO SCH (09:53)
[2016-11-15] MEDS: NICOTINE 14mg PATCH.TD24 TD SCH (09:53)
[2016-11-15] MEDS: SERTRALINE HCL 50 MG TABLET PO SCH (09:54)
[2016-11-15] MEDS: VALPROIC ACID (AS SODIUM SALT) 250 MG/5 ML BOTTLE PO SCH ×2 (09:54→13:17)
[2016-11-15] MEDS: THIAMINE HCL 100 MG TABLET PO SCH (09:54)
[2016-11-15] MEDS ORDERED: 0.9 % SODIUM CHLORIDE 50 ML IV ONE (10:07)
[2016-11-15] MEDS: methylPREDNISolone SOD SUCC 40 MG/ML VIAL IVP SCH (10:13)
[2016-11-15] MEDS: AZITHROMYCIN 500 MG in 0.9 % SODIUM CHLORIDE 250 ML IV SCH (15:18)
[2016-11-15] MEDS: cefTRIAXone SODIUM 1 GM in 0.9 % SODIUM CHLORIDE 50 ML IV SCH (15:18)
[2016-11-15 15:25] VITALS: BP 126/72
--- NOTE | 2016-12-13 12:27 | Discharge Summary ---
Discharge Summary - Discharge Sumary History of Present Illness: 71-year-old white male with a history of COPD. Over the last 3 days prior to admission patient has had increasing shortness of breath dyspnea associated with a productive cough up some green to yellow phlegm. Patient denies any hemoptysis. Patient states that at baseline, breathing has become worse. Patient has been increasing the use of his inhalers without any improvement. Patient had some chills but no fever noted. Patient was subsequently seen in the ED. In the ED patient's SaO2 was approximately 82% on room air. Patient is usually not on home O2. Patient was given several hyperpigmented nebulization treatment and was started on 4 L per nasal cannula. Patient showed some improvement but was not able to maintain his oxygen level without supplemental oxygen. Patient was found to have a leukocytosis and bilateral lower lobe pneumonias. Patient was subsequently admitted to the hospital for further care and evaluation. Home Medications: Ambulatory Orders Medication Instructions Recorded Acetaminophen [Tylenol Extra 500 mg PO TID PRN #0 tablet 11/12/16 Strength] Azithromycin [Zithromax] 250 mg PO DAILY #3 tablet 11/12/16 Budesonide [Pulmicort] 0.5 mg NEB BID ampul.neb 11/12/16 Cefadroxil Hydrate [Duricef] 500 mg PO BID #14 capsule 11/12/16 Divalproex Sodium [Depakote] 500 mg PO BID #60 tablet.dr 11/15/16 Metoprolol Tartrate [Lopressor] 25 mg PO BID tablet 11/15/16 Sertraline HCl [Zoloft] 75 mg PO DAILY tablet 11/15/16 Allergies/Adverse Reactions: Allergies Allergy/AdvReac Type Severity Reaction Status Date / Time No Known Allergies Allergy Verified 11/10/16 08:32 Discharge Summary: Patient had blood cultures drawn which were neg for growth. Patient was placed on Rocephin and Azithromycin IV. Patient was started on methylprednisolone for bronchospasms. Patient continued to have a productive cough. Breathing and exercise tolerance did improve some over the several days after admission. Blood sugars were elevated some. Patient did not have a history of diabetes. Patient's WBC count did improve from 16,600 to 15,500. At the time of dismissal patient was improved and was able to maintain SAO2 > 90%. It was felt that he could be discharged home and managed as an outpatient. - Final Diagnosis (1) Pneumonia Problems: Improved, will continue on po antibiotics (2) Alcohol abuse Problems: stable. Appeared to possibly be having some withdrawal symptoms (3) COPD (chronic obstructive pulmonary disease) Problems: stable (4) Tachyarrhythmia Problems: stable
== END 2016-11-15 15:00 | disposition home or self-care (01) | DRG 195 ==
LOC: ED 08:00 → SOUTH 12:45
PROVIDERS: ADMIT Family Medicine; ATTEND Family Medicine
DX: J18.9 Pneumonia, unspecified organism (principal); F10.10 Alcohol abuse, uncomplicated; J44.9 Chronic obstructive pulmonary disease, unspecified; I49.8 Other specified cardiac arrhythmias
CPT/HCPCS: 36415; 36600; 71010; 71020; 80053; 80320; 81002; 82803; 85025; 87040; 93005; 94640; 94760; 99284; J0456; J0696; J1650; J2920; J2930; J7050; J7626; 99223; 99233; 99238; G0480; J1030; S1016

== ENCOUNTER 2017-01-11 10:45 | Emergency (ER) | payer OTHER ==
[2017-01-11 11:51] LABS: BASOPHILS % 0.5 (0.0-1.5); EOSINOPHILS % 0.6 % (0.0-6.8); MEAN CORPUSCULAR HEMOGLOBIN 28.6 pg (28.0-34.0); MEAN CORPUSCULAR VOLUME 90.9 fl (80.0-100.0); MONOCYTES % 5.7 % (0.0-11.0); NEUTROPHILS # 6.2 # k/uL (1.4-7.7)
[2017-01-11 12:05] LABS: eGFR (African) > 60; eGFR (Non-African) > 60
--- NOTE | 2017-01-11 13:21 | ED Physician Documentation ---
Low Back Pain - HISTORIAN Historian: patient - HPI Stated Complaint: back pain Chief Complaint: Low Back Pain/ Injury Additional Information: lo back and low lt thoracic back pain in thoraco lumbar area. pt had rt pneumonia sev months ago History: back pain Onset: days ago (several) Duration: continues in ED Context: lifting, turning, bending Severity: mild, moderate Quality: burning, dull, similar- prior back pain Associated Symptoms: denies: fever, chills Worsened By:: movement to LT flexion Relieved By: remaining still - ROS CONST: no problems CVS/RESP: none. denies: shortness of breath EYES/ENT: none MS/SKIN/LYMPH: none Neuro/Psych: none GI/: abdominal pain - PAST HX Past History: other (copd htn hi chol cirrhosis splenic enlargement ethanol abuse) Surgeries/Procedures: other (hand and foot) Allergies/Adverse Reactions: Allergies Allergy/AdvReac Type Severity Reaction Status Date / Time No Known Allergies Allergy Verified 11/10/16 08:32 Home Medications: Ambulatory Orders Medication Instructions Recorded Acetaminophen [Tylenol Extra 500 mg PO TID PRN #0 tablet 11/12/16 Strength] Azithromycin [Zithromax] 250 mg PO DAILY #3 tablet 11/12/16 Budesonide [Pulmicort] 0.5 mg NEB BID ampul.neb 11/12/16 Cefadroxil Hydrate [Duricef] 500 mg PO BID #14 capsule 11/12/16 Divalproex Sodium [Depakote] 500 mg PO BID #60 tablet. 11/15/16 Metoprolol Tartrate [Lopressor] 25 mg PO BID tablet 11/15/16 Sertraline HCl [Zoloft] 75 mg PO DAILY tablet 11/15/16 Atorvastatin Calcium 20 mg PO QDAY 01/11/17 Budesonide/Formoterol Fumarate 1 puff IH BID 01/11/17 [Symbicort 160-4.5 Mcg Inhaler] Carvedilol [Coreg] 3.125 mg PO BID 01/11/17 Cetirizine HCl [Zyrtec] 10 mg PO QDAY 01/11/17 Ipratropium/Albuterol Sulfate 3 ml IH BID 01/11/17 [Duoneb] Omeprazole [Prilosec] 20 mg PO BID 01/11/17 Potassium Citrate [Urocit-K] 5 meq PO QDAY 01/11/17 - SOCIAL HX Smoking History: greater than 1 pack/day Alcohol Use: heavy (1 plus pints per day) Drug Use: none - FAMILY HX Family History: no significant history - VITAL SIGNS Vital Signs: Vital Signs Temp Pulse Resp BP Pulse Ox 98.8 F 92 H 18 137/86 92 01/11/17 11:10 01/11/17 11:10 01/11/17 11:10 01/11/17 11:10 01/11/17 11:10 - REVIEWED ASSESSMENTS Nursing Assessment Reviewed: Yes Vitals Reviewed: Yes ED Results Lab/Radiology - Lab Results Lab Results: Lab Results 01/11/17 01/11/17 11:40 11:40 WBC 8.80 K/ul K/ul (4.00-12.00) RBC 4.54 M/ul M/ul (3.90-5.20) Hgb 13.0 g/dL g/dL (12.0-18.0) Hct 41.2 % % (37.0-53.0) MCV 90.9 fl fl (80.0-100.0) MCH 28.6 pg pg (28.0-34.0) MCHC 31.5 g/dL g/dL (30.0-36.0) RDW 14.1 % % (11.3-14.3) Plt Count 218 K/mm3 K/mm3 (130-400) Neut % (Auto) 70.5 % % (39.0-79.0) Lymph % (Auto) 22.0 % % (16.0-50.0) [place] % (Auto) 5.7 % % (0.0-11.0) Eos % (Auto) 0.6 % % (0.0-6.8) Baso % (Auto) 0.5 (0.0-1.5) Neut # 6.2 # k/uL # k/uL (1.4-7.7) Lymph # 1.9 # k/uL # k/uL (0.6-4.0) [place] # 0.5 # k/uL # k/uL (0.0-0.9) Eos # 0.0 # k/uL # k/uL (0.0-0.6) Baso # 0.0 # k/uL # k/uL (0.0-0.5) Reactive Lymphs % 0.7 % % (0.0-5.0) Reactive Lymphs # 0.1 # k/uL # k/uL (0.0-0.8) Sodium 144 mmol/L mmol/L (136-145) Potassium 3.6 mmol/L mmol/L (3.5-5.0) Chloride 105 mmol/L mmol/L (98-110) Carbon Dioxide 36 mmol/L H mmol/L (20-32) BUN 19 mg/dL mg/dL (10-26) Creatinine 0.7 mg/dL mg/dL (0.4-1.5) Estimated Creat Clear 144 Est GFR ( Amer) > 60 (60 - ) Est GFR (Non-Af Amer) > 60 (60 - ) Glucose 116 mg/dL H mg/dL (70-99) Calcium 9.4 mg/dL mg/dL (8.5-10.5) Total Bilirubin 0.3 mg/dL mg/dL (0.2-1.2) AST 18 U/L U/L (0-41) ALT 20 U/L U/L (0-45) Alkaline Phosphatase 70 U/L U/L (46-116) Creatine Kinase 44 U/L U/L (0-225) Total Protein 6.6 g/dL g/dL (6.0-8.5) Albumin 4.2 g/dL g/dL (3.0-5.5) - Orders Orders: ED Orders Category Date Time Status CHEST P.A.&LAT 2 VIEWS [RAD] Stat Exams 01/11/17 Ordered CBC/PLATELET/DIFF Routine Lab 01/11/17 11:40 Completed CMP Routine Lab 01/11/17 11:40 Completed CREATINE KINASE Routine Lab 01/11/17 11:40 Completed EKG WITH COMPARISON Stat Ther 01/11/17 Ordered Low Back Pain/Injury - Physical Exam General Appearance: mild distress EENT: eye inspection normal Neck: non-tender, painless ROM Resp/CVS: chest non-tender, breath sounds nml, heart sounds nml Abdomen: non-tender, no pulsatile mass. No: splenomegaly Back: CVA tenderness, muscle spasm. No: vertebral point-tendernes Straight Leg Raising: Negative Left, Negative Right Neuro/Psych: oriented x3, difficulty walking Skin: warm/dry. No: cyanosis Extremities: non-tender, normal range of motion Discharge Clincal Impression: LUMBAR LIGAMENTS SPRAIN, hx cirrhosis and alcoholism Home Medications: Ambulatory Orders Acetaminophen [Tylenol Extra Strength] 500 mg PO TID PRN #0 tablet 11/12/16 Azithromycin [Zithromax] 250 mg PO DAILY #3 tablet 11/12/16 Budesonide [Pulmicort] 0.5 mg NEB BID ampul.neb 11/12/16 Cefadroxil Hydrate [Duricef] 500 mg PO BID #14 capsule 11/12/16 Divalproex Sodium [Depakote] 500 mg PO BID #60 tablet. 11/15/16 Metoprolol Tartrate [Lopressor] 25 mg PO BID tablet 11/15/16 Sertraline HCl [Zoloft] 75 mg PO DAILY tablet 11/15/16 Atorvastatin Calcium 20 mg PO QDAY 01/11/17 Budesonide/Formoterol Fumarate [Symbicort 160-4.5 Mcg Inhaler] 1 puff IH BID Carvedilol [Coreg] 3.125 mg PO BID 01/11/17 Cetirizine HCl [Zyrtec] 10 mg PO QDAY 01/11/17 Ipratropium/Albuterol Sulfate [Duoneb] 3 ml IH BID 01/11/17 Omeprazole [Prilosec] 20 mg PO BID 01/11/17 Potassium Citrate [Urocit-K] 5 meq PO QDAY 01/11/17
[2017-01-11 13:56] VITALS: BP 132/74
--- NOTE | 2017-01-11 23:34 | Diagnostic Imaging Report ---
EDUAR SHAW [facility] [address] [facility].[address] [address] Report Submission Date: Jan 11, 2017 12:47:36 PM CDT Patient Study Name: JONATHAN ESCOBAR Date: Jan 11, 2017 11:56:55 AM CDT Modality Type: CR Gender: M Description: CHEST : 49 Institution: [facility] Physician: EDUAR SHAW Chest - two views Clinical history: Cough. Shortness of breath. Findings: Examination of the chest in PA and lateral views with comparison to examination of 11/14/2016 demonstrates lungs to be hyperinflated with diminished lung markings in the upper lung zones consistent with changes of emphysema. Cardiovascular and mediastinal silhouettes are stable. The aorta is atherosclerotic. Bony thorax is intact. Impression: 1. Emphysema. 2. Aortic atherosclerosis. Electronically signed on Jan 11, 2017 12:47:36 PM CDT by: Tomás MORAN
== END 2017-01-11 13:53 ==
LOC: ED 10:45
DX: S33.5XXA Sprain of ligaments of lumbar spine, initial encounter (principal); X58.XXXA Exposure to other specified factors, initial encounter; Y93.9 Activity, unspecified; Y99.9 Unspecified external cause status; F17.210 Nicotine dependence, cigarettes, uncomplicated; F10.20 Alcohol dependence, uncomplicated; K70.30 Alcoholic cirrhosis of liver without ascites
CPT/HCPCS: 71020; 80053; 82550; 85025; 99283

== ENCOUNTER 2017-03-23 02:36 | Emergency (ER) | payer MEDICARE, OTHER ==
[2017-03-23] MEDS ORDERED: ASPIRIN 81 MG CHEW TAB PO ONE (03:06)
[2017-03-23 03:25] LABS: BASOPHILS % 0.5 (0.0-1.5); EOSINOPHILS % 0.6 % (0.0-6.8); MEAN CORPUSCULAR HEMOGLOBIN 27.5 pg (28.0-34.0); MEAN CORPUSCULAR VOLUME 88.7 fl (80.0-100.0); MONOCYTES % 3.7 % (0.0-11.0); NEUTROPHILS # 7.7 # k/uL (1.4-7.7)
[2017-03-23 03:35] LABS: eGFR (African) > 60; eGFR (Non-African) > 60
[2017-03-23] MEDS ORDERED: KETOROLAC TROMETHAMINE 30 MG/1ML VIAL IM ONE (03:45)
--- NOTE | 2017-03-23 03:45 | Diagnostic Imaging Report ---
DIONI JAQUEZ [facility] [address] [facility] [address] [address] Report Submission Date: Mar 23, 2017 3:21:48 AM CDT Patient Study Name: JONATHAN ESCOBAR Date: Mar 23, 2017 3:06:20 AM CDT Modality Type: CR Gender: M Description: CHEST : 49 Institution: [facility] Physician: DIONI JAQUEZ Chest,1 view History: CHEST PAIN Findings: The heart size is normal. The lungs are clear. There is no pleural effusion or pneumothorax identified. There is a left lateral 7th rib fracture present. Impression: 1. No acute pulmonary disease. 2. Left lateral 7th rib fracture present. Electronically signed on Mar 23, 2017 3:21:48 AM CDT by: Sebastien MORAN
[2017-03-23] MEDS ORDERED: traMADol HCL 50 MG TABLET PO ONE (03:46)
--- NOTE | 2017-03-23 03:50 | ED Physician Documentation ---
Chest Pain - HISTORIAN Historian: patient - HPI Stated Complaint: chest pain Chief Complaint: Chest Pain Additional Information: sharp left inferior anterior angle of rib pain. was on toilet when pain started 1 hr ago. he said his left arm was numb earlier tonight. no other symptoms. no prev episodes. he has COPD. smoker. Onset: hours Timing: sudden onset, still present Duration: constant Last known Well Date: 03/23/17 Last Known Well Time: 03:50 Context: rest Severity: mild Quality: sharp, stabbing Chest Pain Signs/Symptoms: denies: nausea, vomiting, diaphoresis Worsened By: movement, change in position Relieved By: nothing Further Comments: no - ROS CONST: none MS/LYMPH: none GI/: none EYES/ENT: none SKIN/ENDO: none NEURO/PSYCH: none - PAST HX DE risk factors: hypertension DVT/PE Risk Factors: none Neuro deficit: none GI disease: none Lung disease: COPD Allergies/Adverse Reactions: Allergies Allergy/AdvReac Type Severity Reaction Status Date / Time No Known Allergies Allergy Verified 03/23/17 03:06 Home Medications: Ambulatory Orders Medication Instructions Recorded Acetaminophen [Tylenol Extra 500 mg PO TID PRN #0 tablet 11/12/16 Strength] Azithromycin [Zithromax] 250 mg PO DAILY #3 tablet 11/12/16 Budesonide [Pulmicort] 0.5 mg NEB BID ampul.neb 11/12/16 Cefadroxil Hydrate [Duricef] 500 mg PO BID #14 capsule 11/12/16 Divalproex Sodium [Depakote] 500 mg PO BID #60 tablet. 11/15/16 Metoprolol Tartrate [Lopressor] 25 mg PO BID tablet 11/15/16 Sertraline HCl [Zoloft] 75 mg PO DAILY tablet 11/15/16 Atorvastatin Calcium 20 mg PO QDAY 01/11/17 Budesonide/Formoterol Fumarate 1 puff IH BID 01/11/17 [Symbicort 160-4.5 Mcg Inhaler] Carvedilol [Coreg] 3.125 mg PO BID 01/11/17 Cetirizine HCl [Zyrtec] 10 mg PO QDAY 01/11/17 Ipratropium/Albuterol Sulfate 3 ml IH BID 01/11/17 [Duoneb] Methocarbamol [Robaxin-750] 750 mg PO TID #20 tablet 01/11/17 Omeprazole [Prilosec] 20 mg PO BID 01/11/17 Potassium Citrate [Urocit-K] 5 meq PO QDAY 01/11/17 - SOCIAL HX Smoking History: cigarettes, greater than 1 pack/day Alcohol Use: none Drug Use: none - FAMILY HX Family HX: none - VITAL SIGNS Vital Signs: Vital Signs Temp Pulse Resp BP Pulse Ox 86 20 73/55 93 03/23/17 03:01 03/23/17 03:01 03/23/17 03:01 03/23/17 03:01 - REVIEWED ASSESSMENTS Nursing Assessment Reviewed: Yes Vitals Reviewed: Yes ED Results Lab/Radiology - Lab Results Lab Results: trop <.03 - Radiology Radiology Impressions: L 7th rib fracture - Orders Orders: ED Orders Category Date Time Status Continuous EKG monitoring Q30M Care 03/23/17 03:06 Ordered Continuous Pulse Oximetry Q30M Care 03/23/17 03:06 Ordered CHEST 1 VIEW [RAD] Stat Exams 03/23/17 03:06 Ordered CBC/PLATELET/DIFF Routine Lab 03/23/17 03:06 Ordered CMP Routine Lab 03/23/17 03:06 Ordered CREATINE KINASE Routine Lab 03/23/17 03:06 Ordered TROPONIN I (cTnI) Stat Lab 03/23/17 03:06 Ordered Aspirin Med 03/23/17 03:06 Once 324 mg PO NOW ONE Oxygen Daily Oxygen 03/23/17 03:15 Ordered EKG WITH COMPARISON Stat Ther 03/23/17 03:06 Ordered Chest Pain Physical Exam - EXAM General Appearance: no acute distress, alert EENT: ENT inspection normal Neck: nml inspection, no carotid bruit. No: JVD present Respiratory: no resp. distress, manifests distinct pain on movement, trunk, wheezes CVS: reg. rate & rhythm, no murmur, pulses equal Abdomen: soft, no distension Skin: warm/dry, normal color Extremities: non-tender, no edema Neuro: oriented X3 Discharge Clincal Impression: Rib fracture Qualifiers: Encounter type: initial encounter Rib fracture type: single rib Fracture type: closed Laterality: left Qualified Code(s): S22.32XA - Fracture of one rib, left side, initial encounter for closed fracture COPD (chronic obstructive pulmonary disease) Qualifiers: COPD type: chronic bronchitis Chronic bronchitis type: simple Qualified Code(s) : J41.0 - Simple chronic bronchitis Referrals: Primary Doctor,No [Primary Care Provider] - 2 Days Home Medications: Ambulatory Orders Acetaminophen [Tylenol Extra Strength] 500 mg PO TID PRN #0 tablet 11/12/16 Azithromycin [Zithromax] 250 mg PO DAILY #3 tablet 11/12/16 Budesonide [Pulmicort] 0.5 mg NEB BID ampul.neb 11/12/16 Cefadroxil Hydrate [Duricef] 500 mg PO BID #14 capsule 11/12/16 Divalproex Sodium [Depakote] 500 mg PO BID #60 tablet. 11/15/16 Metoprolol Tartrate [Lopressor] 25 mg PO BID tablet 11/15/16 Sertraline HCl [Zoloft] 75 mg PO DAILY tablet 11/15/16 Atorvastatin Calcium 20 mg PO QDAY 01/11/17 Budesonide/Formoterol Fumarate [Symbicort 160-4.5 Mcg Inhaler] 1 puff IH BID Carvedilol [Coreg] 3.125 mg PO BID 01/11/17 Cetirizine HCl [Zyrtec] 10 mg PO QDAY 01/11/17 Ipratropium/Albuterol Sulfate [Duoneb] 3 ml IH BID 01/11/17 Methocarbamol [Robaxin-750] 750 mg PO TID #20 tablet 01/11/17 Omeprazole [Prilosec] 20 mg PO BID 01/11/17 Potassium Citrate [Urocit-K] 5 meq PO QDAY 01/11/17 Condition: Stable Disposition: 01 HOME, SELF-CARE Decision to Admit: NO Date of Decison to Admit: 03/23/17 Decision Time: 03:45
[2017-03-23 04:08] VITALS: BP 129/78
== END 2017-03-23 04:02 | disposition home or self-care (01) ==
LOC: ED 02:36
DX: S22.32XA Fracture of one rib, left side, initial encounter for closed fracture (principal); X58.XXXA Exposure to other specified factors, initial encounter; Y93.9 Activity, unspecified; Y99.9 Unspecified external cause status
CPT/HCPCS: 71010; 80053; 82550; 84484; 85025; J1885; 99283